=== PATIENT | female | born 1970 | race Caucasian/White ===

== ENCOUNTER 2024-07-18 10:49 | Emergency (ER) | payer OTHER, SELFPAY ==
--- NOTE | ~2024-07-18 | CT_ITS ---
CT brain wo con Ordering provider: Lolita Navarro APRN History: 54 years Female with . headache worst of my life . Comparison: November 24, 2005 [place] Technique: CT of the head without contrast. Radiation reduction technique utilized.The dose-length pr oduct was 605.33 mGy-cm. FINDINGS: BRAIN PARENCHYMA AND CSF SPACES: No midline shift, mass effect or hemorrhage. The brain parenchyma a nd CSF spaces are otherwise normal. VISUALIZED PARANASAL SINUSES: Well aerated. MASTOIDS: Well aerated. BONES: The bones appear intact. SOFT TISSUES: Visualized nasopharynx is normal. Superficial soft tissues are normal. IMPRESSION: No acute intracranial findings. Reviewed, dictated and finalized at location A.
[2024-07-18 10:50] VITALS: BP 125/93; PULSE 89; RESP 16; TEMP 37; O2SAT 98
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
--- OUTSIDE RECORDS SUMMARY | 2024-07-18 11:56 | XMS_ITS | Continuity of Care Document ---
Author Organization [facility] Address [address] [place] [address] Phone Care Team Providers Care Disability Insurance Hearing Officer Name Role Phone Lan Lopes MD Unavailable Unavailable Procedures Procedure Date Medical Testimony Deposition Work/medical disability examination MARCIA X-ray exam of neck spine2-3 views Advance Directives Directive Yes / No Effective Date File Name No Information Encounters Encounter Description Practice Location Reason(s) For Visit Diagnoses Date Provider Providers Copied on Encounter [facility], [address] [place] [address], [id number], tel:[phone] No Information 2 Moses Montenegro. [address] [place] [address], [id number] , [place]. tel: [phone] Work/medical disability examination MARCIA [facility], [address] [place] [address], [id number], [place] tel:[phone] [facility] 1 Moses Montenegro. [address] [place] [address], [id number] , [place]. tel: [phone] Family History Family Member Type Diagnosis Age At Onset No Information Payers Payer name Insurance type Covered libertarian ID Authoriza tion(s) No Information Social History Type Description Quantity Date Captured Comments Sex Female Smoking Status No Information Chief Complaint And Reason For Visit No Information Reason For Referral Reason For Referral No Information History Of Present Illness Encounter Date Complaint History Of Prese nt Illness No Information Functional Status Date Functional Assessmen t No Information Instructions Date Instruction Additional Infor mation No Information Assessments Type Assessment Date No Information Patient Care Teams Name Effective Dates (start - stop) Status Members No Information
--- NOTE | 2024-07-18 12:12 | ED.HA ---
HPI - Headache General Chief Complaint: Headache Stated Complaint: KAT Time Seen by Provider: 07/18/24 11:41 History of Present Illness HPI Narrative: Patient is a 54-year-old female presents to the ER with complaints headache. She reports the pain started 2-3 days ago but worsened last night. Patient endorses nausea, gastric reflux, and a sore throat. She reports she used to have migraines but has not had them in years. Patient reports the pain starts in the middle of her forehead, then radiates behind her left eye and to the back of her head. She denies any pertinent medical history relevant to this ER visit. Related Data Allergies Allergy/AdvReac Type Severity Reaction Status Date / Time No Known Allergies Allergy Verified 07/18/24 10:49 Review of Systems Review of Systems: All systems reviewed & are unremarkable except as noted in HPI and below Exam Narrative: GENERAL: Well appearing, well-nourished, non-toxic, in no acute distress. HEAD: Normocephalic, atraumatic. NECK: Supple. No adenopathy, no masses. RESPIRATORY: Airway patent, respirations nonlabored. Clear to auscultation bilaterally, no rales, rhonchi, wheezing. CARDIOVASCULAR: Regular rate and rhythm without murmurs, rubs, or gallops. Peripheral pulses 2+ and equal bilaterally. ABDOMINAL: Soft, nontender, nondistended, no hepatosplenomegaly. Normoactive BS. MUSCULOSKELETAL: Moves all extremities. Strength/ROM intact without gross deformities. SKIN: Warm, dry, normal color. No rashes. NEURO: A&O X3. Speech clear. Cranial nerves II-XII intact. No ataxic movements. PSYCHIATRIC: Appropriate mood and affect. Normal interaction. Course Vital Signs Vital signs: Vital Signs Temperature 37.0 C 07/18/24 10:50 Pulse Rate 89 07/18/24 10:50 Respiratory Rate 16 07/18/24 10:50 Blood Pressure 125/93 H 07/18/24 10:50 Pulse Oximetry 98 07/18/24 10:50 Temperature 37.0 C 07/18/24 10:50 Pulse Rate 89 07/18/24 10:50 Respiratory Rate 16 07/18/24 10:50 Blood Pressure 125/93 H 07/18/24 10:50 Pulse Oximetry 98 07/18/24 10:50 MDM - Headache MDM Narrative Medical decision making narrative: Patient is a 54-year-old female presents to the ER with complaints headache. She reports the pain started 2-3 days ago but worsened last night. Patient endorses nausea, gastric reflux, and a sore throat. She reports she used to have migraines but has not had them in years. Patient reports the pain starts in the middle of her forehead, then radiates behind her left eye and to the back of her head. She denies any pertinent medical history relevant to this ER visit. Labs Ordered: CBC, CMP, strep, COVID/flu/RSV Imaging Ordered: CT brain Medications Ordered: 1 L normal saline IV bolus, Toradol IV, Benadryl IV, Decadron IV, Reglan IV Results: CT scan indicates BRAIN PARENCHYMA AND CSF SPACES: No midline shift, mass effect or hemorrhage. The brain parenchyma and CSF spaces are otherwise normal. VISUALIZED PARANASAL SINUSES: Well aerated. MASTOIDS: Well aerated. BONES: The bones appear intact. SOFT TISSUES: Visualized nasopharynx is normal. Superficial soft tissues are normal. Diagnosis: migraine headache Risks: HEART score, PECARN score, CURB-65 score Consults: Patient Education/Shared MDM: Results of lab work and imaging shared with patient. She endorses improvement of symptoms following medication administration. Patient reports her throat is also better. She reports she thinks she may need to get evaluated for sleep disorder for further evaluation of her throat. Patient strongly advised to maintain hydration status upon discharge and follow-up with their PCP as soon as possible. She will not be discharged home with any new prescriptions. Strict return precautions provided. Patient verbalized understanding and is in agreement with plan. Vital signs stable at time of discharge. All questions answered. Differential Diagnosis Differential diagnosis: Likely migraine, tension headache and subarachnoid hemorrhage Lab Data Attestation: I reviewed the patient's lab results. 07/18/24 12:35 07/18/24 12:35 Labs: Lab Results 07/18/24 Range/Units 12:35 WBC 8.1 (4.5-10.0) K/mm3 RBC 4.21 (4.2-5.4) M/mm3 Hgb 11.1 L (12.0-15.0) g/dL Hct 36.5 L (37.0-47.0) % MCV 86.7 (80-100) fl MCH 26.4 (26-34) pg MCHC 30.4 L (32-36) g/dl RDW 15.1 H (11.5-14.5) % Plt Count 297 (150-375) k/mm3 MPV 9.2 (7.4-10.4) fl Immature Gran % (Auto) 0.9 H (0-0.5) % Neut % (Auto) 57.8 (45.5-73.1) % Lymph % (Auto) 28.9 (18.3-44.2) % Trinity % (Auto) 9.6 H (2.6-8.5) % Eos % (Auto) 2.6 (0-4.4) % Baso % (Auto) 0.2 (0.2-1.2) % Lymph # (Auto) 2.34 (0.9-3.2) K/mm3 Trinity # (Auto) 0.8 H (0.1-0.6) K/mm3 Eos # (Auto) 0.2 (0-0.3) K/mm3 Baso # (Auto) 0.0 (0.0-0.1) K/mm3 Abs Immat Gran (auto) 0.07 H (0.00-0.031) K/mm3 Absolute Neuts (auto) 4.7 (1.3-6.7) K/mm3 Absolute Nucleated RBC 0.000 (0.0-0.012) K/mm3 Nucleated RBC % 0.0 (0.0-0.2) % Sodium 141 (137-145) mmol/L Potassium 3.8 (3.4-5.0) mmol/L Chloride 112 H (98-107) mmol/L Carbon Dioxide 25 (22-30) mmol/L Anion Gap 4 (4-12) mmol/L BUN 10 (7-17) mg/dL Creatinine 0.50 L (0.7-1.0) mg/dL Estim Creat Clear Calc 133 ml/min Estimated GFR > 60 (59 - ) Glucose 87 (65-110) mg/dL Calcium 9.8 (8.4-10.2) mg/dL Total Bilirubin 0.2 (0.2-1.3) mg/dL AST 22 (14-36) U/L ALT 31 (6-35) U/L Alkaline Phosphatase 50 (38-126) U/L Total Protein 6.0 L (6.3-8.2) g/dL Albumin 3.6 (3.5-5.1) g/dL Influenza A (RT-PCR) Negative (Negative) Influenza B (RT-PCR) Negative (Negative) RSV (RT-PCR) Negative (Negative) SARS-CoV-2 RNA (RT-PCR) Negative (Negative) Group A Strep (PCR) Not detected (Negative) Imaging Data Attestation: I personally reviewed and interpreted this imaging study as follows: Radiologist's impression: Impressions Head CT 07/18/24 13:06 IMPRESSION: No acute intracranial findings. Discharge Plan Discharge Clinical Impression: Migraine, Headache Patient Disposition: Home Condition: Stable Instructions: Antibiotic Form, Migraine Headache (ED) Additional Instructions: Please return to the ER with any worsening symptoms. Follow-up with primary care provider as soon as possible. Take all regularly scheduled medications. Patient Language: [place] Islander Follow-up/Referrals: Cici,Brett Moser MD [Primary Care Provider] - Time of Disposition: 13:50
[2024-07-18] MEDS: SODIUM CHLORIDE 0.9% IV 1,000 ML 999 ML IV CONT (12:35)
[2024-07-18] MEDS: METOCLOPRAMIDE HCL INJ 10 MG/2 ML VIAL IV PUSH (12:36)
[2024-07-18] MEDS: diphenhydrAMINE HCl INJ 50 MG/ML VIAL 25 MG IV PUSH (12:36)
[2024-07-18] MEDS: dexAMETHasone SOD PHOS INJ 10 MG/ML 1 ML VIAL IV PUSH (12:36)
[2024-07-18 12:48] LABS: Basophils Percent Auto 0.2 % (0.2-1.2); Eosinophils Absolute Auto 0.2 K/mm3 (0-0.3); Eosinophils Percent Auto 2.6 % (0-4.4); Hematocrit 36.5 % (37.0-47.0); Hemoglobin 11.1 g/dL (12.0-15.0); Immature Granulocyte Absolute 0.07 K/mm3 (0.00-0.031); Immature Granulocyte Percent A 0.9 % (0-0.5); Lymphocytes Absolute Auto 2.34 K/mm3 (0.9-3.2); Lymphocytes Percent Auto 28.9 % (18.3-44.2); Mean Corpuscular HGB Conc 30.4 g/dl (32-36); Mean Corpuscular Hemoglobin 26.4 pg (26-34); Mean Corpuscular Volume 86.7 fl (80-100); Mean Platelet Volume 9.2 fl (7.4-10.4); Monocytes Absolute Auto 0.8 K/mm3 (0.1-0.6); Monocytes Percent Auto 9.6 % (2.6-8.5); Neutrophils Absolute Auto 4.7 K/mm3 (1.3-6.7); Neutrophils Percent Auto 57.8 % (45.5-73.1); Platelet Count Result 297 k/mm3 (150-375); Red Blood Count 4.21 M/mm3 (4.2-5.4); Red Cell Distribution Width 15.1 % (11.5-14.5); White Blood Count 8.1 K/mm3 (4.5-10.0)
[2024-07-18 12:59] LABS: Alanine Aminotransferase 31 U/L (6-35); Albumin Level 3.6 g/dL (3.5-5.1); Alkaline Phosphatase 50 U/L (38-126); Anion Gap 4 mmol/L (4-12); Aspartate Amino Transferase 22 U/L (14-36); Bilirubin,Total 0.2 mg/dL (0.2-1.3); Blood Urea Nitrogen 10 mg/dL (7-17); Calcium 9.8 mg/dL (8.4-10.2); Carbon Dioxide 25 mmol/L (22-30); Chloride 112 mmol/L (98-107); Estimated CRCL calculation 133 ml/min; Estimated Glomerular Filt Rate > 60; Glucose 87 mg/dL (65-110); Potassium 3.8 mmol/L (3.4-5.0); Sodium 141 mmol/L (137-145)
[2024-07-18 13:14] LABS: Strep Group A RT-PCR NOT DETECTED (Negative)
[2024-07-18 13:26] LABS: Influenza A QL RT-PCR Negative (Negative); Influenza B QL RT-PCR Negative (Negative); RSV RNA, RT-PCR Negative (Negative); SARS-CoV-2 RNA PCR Negative (Negative)
[2024-07-18] MEDS: KETOROLAC 15 MG/ML VIAL (*BKC) IV PUSH (13:26)
[2024-07-18 14:01] VITALS: BP 138/86; PULSE 16; RESP 16; TEMP 31.6; O2SAT 98
== END 2024-07-18 14:29 | disposition home or self-care (01) ==
PROVIDERS: Emergency Provider Registered Nurse; PCP Family Medicine
DX: G43.909 Migraine, unspecified, not intractable, without status migrainosus (principal); Z20.822 Contact with and (suspected) exposure to COVID-19
CPT/HCPCS: 36415; 70450; 80053; 85025; 87637; 87651; 96361; 96374; 96375; 99284; J1100; J1200; J1885; J2765; J7030

== ENCOUNTER 2024-07-22 08:22 | Emergency (ER) | payer OTHER, SELFPAY ==
--- NOTE | ~2024-07-22 | XR_ITS ---
Clinical Indication: Cough PA and lateral views of the chest: Comparison: 11/24/2005 Findings: The lungs are clear, without evidence of focal consolidation or pleural effusion. Cardiome diastinal silhouette is within normal limits. Bones and soft tissues are unremarkable. Impression: Normal chest. Reviewed, dictated and finalized at [facility]. Impression: Normal chest.
--- OUTSIDE RECORDS SUMMARY | 2024-07-22 08:26 | XMS_ITS | Patient Health Record ---
Author Organization [facility] Address [address] [place] [address] Care Team Providers Care Disassembler Product Name Role Phone Abby Duncan Primary Care Provider Sami Forbes Unavailable [phone] Carmen Pagan Unavailable Allergies No Known Allergies Results Component Value Reference Range Notes Breathalyzer Reviewed date:07/14/2024 02:34:23 PM Interpretation: Performing Lab: Notes/Report: LISA 0.000 12 Panel Urine Drug Screen Reviewed date:07/14/2024 02:35:09 PM Interpretation: Performing Lab: Notes/Report: THC neg BHAVIN neg MOP (OPI) neg AMP neg MET neg BAR neg BZO neg MDMA neg MTD neg OXY neg PCP neg BUP neg QuantiFERON-TB Gold Plus ([id number]) Reviewed date:07/17/2024 10:26:17 AM Interpretation: Performing Lab:[facility], [address], Phone - [phone], Director - [facility] Notes/Report: QuantiFERON Incubation Incubation performed. QuantiFERON-TB Gold [...] Screen *HIV 1, 2 Ab, p24 Ag ([id number]) Reviewed date:07/17/2024 10:26:26 AM Interpretation: Performing Lab:[facility] [address] [place] [address], Phone - [phone], Director - [facility] Notes/Report: HIV Ab/p24 Ag Screen Non Reactive Non Reactive HIV-1/HIV-2 antibodies and HIV-1 p24 antigen were NOT detected. There is no laboratory evidence of HIV infection. HIV Negative Hepatitis B Surface Antigen (HBsAg Screen) Reviewed date:07/17/2024 10:26:36 AM Interpretation: Performing Lab:[facility] [address], Phone - [phone], Director - [facility] Notes/Report: HBsAg Screen Negative Negative Hepatitis C Virus Antibody w /Rflx to Quantitative Real-time PCR ([id number]) Reviewed date:07/17/2024 10:26:48 AM Interpretation: Performing Lab:[facility] [address] [place] [address], Phone - [phone], Director - [facility] Notes/Report: HCV Ab Non Reactive Non Reactive Interpretation: Not infected with HCV unless early or acute infection is suspected (which may be delayed in an immunocompromised individual), or other evidence exists to indicate HCV infection. Occult Blood, Fecal, IA ([id number]) Reviewed date:07/17/2024 10:49:42 AM Interpretation: Performing Lab:[facility] [address], Phone - [phone], Director - [facility] Notes/Report: Occult Blood, Fecal, IA TNP Test not performed. No Immuno Polymedco OC sampling bottle received. Reason For Referral Reason Client needs assista nce with applying to housing options while on the unit Diagnosis 1 Depression (F32.9) [facility] Referring Provider First Name Carmen Referring Provider Last Name Alena westfall Referring Provider Speciality Mental [facility] counseling Referred Provider Specialty [employer] Administrator Referral Priority Routine Reason Unemployment, disabi lity, housing Diagnosis 1 MDD (major depressiv e disorder) (F32.9) Diagnosis 2 Anxiety disorder (F4 1.9) Diagnosis 3 PTSD (post-traumatic stress disorder) (F43.10) Referral Organization [facility] Referring Provider First Name Abby Referring Provider Last Name Dakota Referring Provider Speciality Psychiatry Referred Provider Specialty [facility] General Notes DakotaAbby cooper Amarilys 02:15:33 [...] with others, in a hotel, in a usp, living outside on the street, on a beach, or in a park) Client has been staying with friend but was asked to leave prior to detox at [facility]. Client is now homeless Are you worried about losing your housing? Yes What is the highest level of school that you have finished? More than high school What is your current work situation? Unemployed and seeking work Client will be able to reapply for job at [employer] after completing treatment. In the past year, have you o r any family members you live with been unable to get any of the following when it was really needed? Check all that apply Medicine or any health care (medical, dental, mental health or vision) Needs help getting a psych provider, telegraphic typewriter mechanic will help get client scheduled Has lack [...] to suspended license. Client has been in [facility] where public transport is minimal. How often do you see or talk to people that you care about and feel close to? (For example: talking to friends on the phone, visiting friends or family, going to anabaptist or club meetings) 3 to 5 times a week In the past year have you spent more than 2 nights in a row in a detention, long term, jail center, or juvenile correctional facility? No Are [...] Status W/U Status Risk Notes Problem Hypertension (21287376) Hypertension (I10) 07/15/19 25 Active confirmed Problem Hyperlipidemia (44780902) Hyperlipidemia (E78.5) 07/15/19 25 Active confirmed Problem Posttraumatic stress disorder (34301334) PTSD (post-traumatic stress disorder) (F43.10) Active confirmed likely CPTSD Problem Anxiety disorder (442006876) Anxiety disorder (F41.9) Active confirmed Problem Major depressive disorder (597802667) MDD (major depressive disorder) (F32.9) Active confirmed Vital Signs Heart Rate 87 /min 07/14/2024 Respiratory Rate 16 /min 07/14/2024 Blood pressure diastolic 84 mm Hg 07/14/2024 Oximetry 95 % 07/14/2024 Height 64 in 07/14/2024 Blood pressure systolic 128 mm Hg 07/14/2024 Weight 256.2 lbs 07/14/2024 BMI 43.97 kg/m2 07/14/2024 Encounters Encounter Location Date Provider Diagnosis [facility] [address] [place] [address] 07/14/2024 Sami Forbes Hypertension I10 ; Hyperlipidemia E78.5 ; Screening for diabetes mellitus Z13.1 ; Colon cancer screening Z12.11 ; Exposure to potential infection Z20.9 ; Left leg weakness R29.898 ; Left leg pain M79.605 and Depression F32.9 [facility] [address] [place] [address] 07/14/2024 Carmen Pagan Depression F32.[address] [place] [address] 07/17/2024 Abby Duncan MDD (major depressiv e disorder) F32.9 ; Anxiety disorder F41.9 and PTSD (post-traumatic stress disorder) F43.10 [facility] [address] [place] [address] 07/16/2024 Abby Duncan Assessments Encounter Date Diagnosis [...] Insured Coverage Start Date Coverage End Date [facility] Attn Claims Department [address] [address] [phone] [id number] Luna Deutsch Self - patient is the insured 3 [employer] Attn Claims Department [address] [address] [phone] [id number] Luna Deutsch Self - patient is the insured 5 [employer] Attn Claims Department [address] [address] [phone] [id number] Luna Deutsch Self - patient is the insured 3 Medical (General) History Medical History History ICD Code HTN HLD Hypothyroidism MDD Surgical History Surgery Date(Month/Year) cellutisis MRSA x2 Achillies repair Hospitalization History Reason Date(Month/Year) [facility]
--- OUTSIDE RECORDS SUMMARY | 2024-07-22 08:26 | XMS_ITS | Continuity of Care Document ---
Author Organization [facility] Address [address] [place] [address] Phone Care Team Providers Care Dry Color Tester Name Role Phone Lan Lopes MD Unavailable Unavailable Procedures Procedure Date Medical Testimony Deposition Work/medical disability examination MARCIA X-ray exam of neck spine2-3 views Advance Directives Directive Yes / No Effective Date File Name No Information Encounters Encounter Description Practice Location Reason(s) For Visit Diagnoses Date Provider Providers Copied on Encounter [facility] [employer], [address] [place] [address], [id number], tel:[phone] [employer] No Information 2 Moses Montenegro. [address] [place] [address], [id number] , [place]. tel: [phone] Work/medical disability examination MARCIA [facility] [employer], [address] [place] [address], [id number], [place] tel:[phone] [facility] [facility] 1 Moses Montenegro. [address] [place] [address], [id number] , [place]. tel: [phone] Family History Family Member Type Diagnosis Age At Onset No Information Payers Payer name Insurance type Covered democrat ID Authoriza tion(s) No Information Social History [...]
[2024-07-22 08:32] VITALS: BP 120/85; PULSE 95; RESP 18; TEMP 36.8; O2SAT 99
--- OUTSIDE RECORDS SUMMARY | 2024-07-22 09:00 | XMS_ITS | Continuity of Care Document ---
Author Organization [facility] Address [address] [place] [address] Phone Care Team Providers Care Ground Wirer Name Role Phone Lan Lopes MD Unavailable Unavailable Procedures Procedure Date Medical Testimony Deposition Work/medical disability examination MARCIA X-ray exam of neck spine2-3 views Advance Directives Directive Yes / No Effective Date File Name No Information Encounters Encounter Description Practice Location Reason(s) For Visit Diagnoses Date Provider Providers Copied on Encounter [facility], [address] [place] [address], [id number], tel:[phone] [employer] No Information 2 Moses Montenegro. [address] [place] [address], [id number] , [place]. tel: [phone] Work/medical disability examination MARCIA [facility], [address] [place] [address], [id number], [place] tel:[phone] [facility] 1 Moses Montenegro. [address] [place] [address], [id number] , [place]. tel: [phone] Family History Family Member Type Diagnosis Age [...]
--- NOTE | 2024-07-22 09:19 | ECG_ITS ---
Test Date: 2024-07-22 09:28:45 Measurements Intervals [place] Rate: 80 P: 54 NV: 142 QRS: 36 QRSD: 93 T: 27 QT: 357 QTc: 413 Interpretive Statements SINUS RHYTHM NONSPECIFIC T WAVE ABNORMALITY No previous ECG available for comparison Electronically Signed On 07-22-2024 14:07:40 CDT by Lucien Nichols M.D.
[2024-07-22 09:34] VITALS: PULSE 78; RESP 14
[2024-07-22 09:37] LABS: Basophils Percent Auto 0.3 % (0.2-1.2); Eosinophils Absolute Auto 0.2 K/mm3 (0-0.3); Eosinophils Percent Auto 1.9 % (0-4.4); Hemoglobin 10.9 g/dL (12.0-15.0); Immature Granulocyte Absolute 0.08 K/mm3 (0.00-0.031); Immature Granulocyte Percent A 0.7 % (0-0.5); Lymphocytes Absolute Auto 1.25 K/mm3 (0.9-3.2); Lymphocytes Percent Auto 10.5 % (18.3-44.2); Mean Corpuscular HGB Conc 31.1 g/dl (32-36); Mean Corpuscular Hemoglobin 26.5 pg (26-34); Mean Corpuscular Volume 85.2 fl (80-100); Monocytes Absolute Auto 1.2 K/mm3 (0.1-0.6); Monocytes Percent Auto 9.9 % (2.6-8.5); Neutrophils Absolute Auto 9.1 K/mm3 (1.3-6.7); Neutrophils Percent Auto 76.7 % (45.5-73.1); Platelet Count Result 281 k/mm3 (150-375); Red Blood Count 4.11 M/mm3 (4.2-5.4); Red Cell Distribution Width 15.4 % (11.5-14.5); White Blood Count 11.9 K/mm3 (4.5-10.0)
[2024-07-22] MEDS: IPRATROPIUM 0.5 MG/ALBUTEROL SULFATE 2.5 MG AMPUL.NEB 3 ML INHALATION (09:37)
[2024-07-22 09:41] VITALS: PULSE 80; RESP 15
--- NOTE | 2024-07-22 09:46 | ED.URI ---
HPI - URI/Sore Throat General Chief Complaint: Upper Respiratory Infection Stated Complaint: HTN, congestion Time Seen by Provider: 07/22/24 08:52 Source: patient Mode of arrival: ambulatory Limitations: no limitations History of Present Illness HPI Narrative: Patient is a 54-year-old female who presents the ED with report of upper respiratory symptoms. Patient reports she began feeling ill on Sunday with a scratchy sore throat. She has developed sinus pressure, congestion, rhinorrhea. States today symptoms seem to be more into her chest with chest congestion, dry cough. She has been feeling short of breath, worse with exertion. Reports having chest pain with coughing, otherwise denies chest pain at rest. Patient states she feels miserable overall. Denies fevers. Denies known sick contacts. She is currently residing at [facility] [place] [facility] [place] health [place]. Denies pain or swelling in legs. Denies previous history of lung issues. Denies smoking history. Related Data Allergies Allergy/AdvReac Type Severity Reaction Status Date / Time No Known Allergies Allergy Verified 07/18/24 10:49 Review of Systems Review of Systems: All systems reviewed & are unremarkable except as noted in HPI. All systems reviewed & are unremarkable except as noted in HPI and below Exam Narrative: GENERAL: Appears older than stated age, morbidly obese with BMI of 45.3, non-toxic, in no acute distress. HEAD: Normocephalic, atraumatic. RESPIRATORY: Airway patent, respirations mildly tachypneic, but nonlabored. Scattered end expiratory faint wheezing, heard most in right lower lung zone. CARDIOVASCULAR: Regular rate and rhythm without murmurs, rubs, or gallops. Peripheral pulses intact. ABDOMINAL: Soft, nontender, nondistended. Normoactive BS. MUSCULOSKELETAL: Moves all extremities. No gross deformities. No peripheral edema. No calf tenderness. SKIN: Warm, dry, normal color. NEURO: A&O X3. Speech clear. Cranial nerves II-XII grossly intact. Steady gait. No ataxic movements. PSYCHIATRIC: Appropriate mood and affect. Normal interaction. Course Vital Signs Vital signs: Vital Signs Temperature 98.3 F 07/22/24 08:32 Pulse Rate 95 07/22/24 08:32 Respiratory Rate 18 07/22/24 08:32 Blood Pressure 120/85 07/22/24 08:32 Pulse Oximetry 99 07/22/24 08:32 Oxygen Delivery Room Air 07/22/24 08:32 Temperature 98.3 F 07/22/24 08:32 Pulse Rate 63 07/22/24 11:22 Respiratory Rate 18 07/22/24 11:22 Blood Pressure 145/81 H 07/22/24 11:22 Pulse Oximetry 100 07/22/24 11:22 Oxygen Delivery Room Air 07/22/24 10:32 MDM - URI/Sore Throat MDM Narrative Medical decision making narrative: Patient presented to ED with URI symptoms began a few days ago. Congestion, cough, short of breath, chest pain with coughing. Vital signs are stable upon arrival. Patient is afebrile here. In no acute distress. EKG with normal sinus rhythm, no concerning ST changes. Troponin undetectable. BNP within normal range. Patient does not appear fluid overloaded. D-dimer is within normal range. Chest x-ray clear. Cbc with blood cell count of 11.9. This is new from previous/recent labs last week. CMP unremarkable. Viral swabs are negative. Given new white count with new cough, will cover for atypical PNA with abx. Patient will be started on Augmentin and azithromycin for CAP. Will also prescribe inhaler for home use as patient did have some wheezing on exam. Vitals have remained stable throughout ED stay. There has been no hypoxia. Otherwise feel patient is safe for discharge home with outpatient follow-up. Patient given strict return precautions. She is in agreement with plan. Discharged in stable condition. Medical Records Attestation: I reviewed the patient's medical records. Lab Data Attestation: I reviewed the patient's lab results. 07/22/24 09:31 07/22/24 09:31 Labs: Lab Results 07/22/24 07/22/24 Range/Units 09:17 09:31 WBC 11.9 H (4.5-10.0) K/mm3 RBC 4.11 L (4.2-5.4) M/mm3 Hgb 10.9 L (12.0-15.0) g/dL Hct 35.0 L (37.0-47.0) % MCV 85.2 (80-100) fl MCH 26.5 (26-34) pg MCHC 31.1 L (32-36) g/dl RDW 15.4 H (11.5-14.5) % Plt Count 281 (150-375) k/mm3 MPV 9.0 (7.4-10.4) fl Immature Gran % (Auto) 0.7 H (0-0.5) % Neut % (Auto) 76.7 H (45.5-73.1) % Lymph % (Auto) 10.5 L (18.3-44.2) % Grady % (Auto) 9.9 H (2.6-8.5) % Eos % (Auto) 1.9 (0-4.4) % Baso % (Auto) 0.3 (0.2-1.2) % Lymph # (Auto) 1.25 (0.9-3.2) K/mm3 Grady # (Auto) 1.2 H (0.1-0.6) K/mm3 Eos # (Auto) 0.2 (0-0.3) K/mm3 Baso # (Auto) 0.0 (0.0-0.1) K/mm3 Abs Immat Gran (auto) 0.08 H (0.00-0.031) K/mm3 Absolute Neuts (auto) 9.1 H (1.3-6.7) K/mm3 Absolute Nucleated RBC 0.000 (0.0-0.012) K/mm3 Nucleated RBC % 0.0 (0.0-0.2) % PT 13.1 (11.1-14.7) Seconds INR 1.0 APTT 21.7 L (22.3-36.8) Seconds D-Dimer 0.43 (<0.48) ug/mL Sodium 138 (137-145) mmol/L Potassium 3.8 (3.4-5.0) mmol/L Chloride 107 (98-107) mmol/L Carbon Dioxide 28 (22-30) mmol/L Anion Gap 3 L (4-12) mmol/L BUN 13 (7-17) mg/dL Creatinine 0.55 L (0.7-1.0) mg/dL Estim Creat Clear Calc 124 ml/min Estimated GFR > 60 (59 - ) Glucose 86 (65-110) mg/dL Calcium 9.9 (8.4-10.2) mg/dL Total Bilirubin 0.3 (0.2-1.3) mg/dL AST 20 (14-36) U/L ALT 29 (6-35) U/L Alkaline Phosphatase 69 (38-126) U/L Troponin I < 0.012 (0.000-0.034) ng/mL NT-Pro-B Natriuret Pep 253 H (19.9-100) pg/mL Total Protein 6.0 L (6.3-8.2) g/dL Albumin 3.7 (3.5-5.1) g/dL Influenza A (RT-PCR) Negative (Negative) Influenza B (RT-PCR) Negative (Negative) RSV (RT-PCR) Negative (Negative) SARS-CoV-2 RNA (RT-PCR) Negative (Negative) Imaging Data Attestation: I personally reviewed and interpreted this imaging study as follows: Radiologist's impression: ITS Impressions Chest X-Ray 07/22/24 09:56 Impression: Normal chest. ECG Data EKG #1: Attestation: I personally reviewed and interpreted this ECG as follows: ECG completion date: 07/22/24 ECG completion time: :28 EKG Interpretation: normal rate (80), sinus rhythm and no ST changes Discharge Plan Discharge Clinical Impression: Pneumonia Qualifiers: Pneumonia type: due to unspecified organism Laterality: unspecified laterality Lung location: unspecified part of lung Qualified Code(s): J18.9 - Pneumonia, unspecified organism Patient Disposition: Other Condition: Stable Instructions: Antibiotic Form, Viral Syndrome (ED), Cold Symptoms (ED), Pneumonia (ED) Additional Instructions: Take antibiotics as prescribed for potential pneumonia. Utilize inhaler as needed for wheezing. Stay well-hydrated at home. Utilize Tessalon Perles as needed for cough. Continue Tylenol and Ibuprofen as needed for discomfort and/or fevers. Recommend [id number] cough and cold medicines for symptom relief, Delsym, Mucinex, DayQuil, NyQuil, Sudafed, Robitussin, TheraFlu. Follow with primary care doctor upon resolution of symptoms. Return to the ED if you experience worsening or severe chest pain, difficulty breathing, unable to keep down food or drink, severe pain, or any other symptoms of concern. Patient Language: Arabic Prescriptions: New azithromycin [Zithromax Z-Brendon] 250 mg tablet See Rx Instructions .ROUTE .COMPLEX Qty: 6 0RF Rx Instructions: For 250 mg dose pack: take 500 mg today (day 1), then 250 mg for 4 days (days 2-5) amoxicillin-pot clavulanate 875-125 mg tablet 1 tablet PO Q12H 7 Days Qty: 14 0RF albuterol sulfate 90 mcg/actuation HFA aerosol inhaler 2 puff inhalation QID PRN (Reason: shortness of breath or wheezing) Qty: 6.7 0RF benzonatate 200 mg capsule 200 mg PO TID PRN (Reason: cough) Qty: 14 0RF Follow-up/Referrals: Cici,Brett Moser MD [Primary Care Provider] - Time of Disposition: 11:05
[2024-07-22 09:49] LABS: Alanine Aminotransferase 29 U/L (6-35); Albumin Level 3.7 g/dL (3.5-5.1); Alkaline Phosphatase 69 U/L (38-126); Anion Gap 3 mmol/L (4-12); Aspartate Amino Transferase 20 U/L (14-36); Bilirubin,Total 0.3 mg/dL (0.2-1.3); Blood Urea Nitrogen 13 mg/dL (7-17); Calcium 9.9 mg/dL (8.4-10.2); Carbon Dioxide 28 mmol/L (22-30); Chloride 107 mmol/L (98-107); Estimated CRCL calculation 124 ml/min; Estimated Glomerular Filt Rate > 60; Glucose 86 mg/dL (65-110); Potassium 3.8 mmol/L (3.4-5.0); Sodium 138 mmol/L (137-145)
[2024-07-22 09:50] LABS: Partial Thromboplastin Time 21.7 Seconds (22.3-36.8); Prothrombin Time 13.1 Seconds (11.1-14.7)
[2024-07-22 09:55] LABS: D Dimer 0.43 ug/mL (<0.48)
[2024-07-22 10:01] LABS: Influenza A QL RT-PCR Negative (Negative); Influenza B QL RT-PCR Negative (Negative); RSV RNA, RT-PCR Negative (Negative); SARS-CoV-2 RNA PCR Negative (Negative)
[2024-07-22 10:01] LABS: NT Pro B Type Natriuretic Pept 253 pg/mL (19.9-100); Troponin I < 0.012 ng/mL (0.000-0.034)
[2024-07-22] MEDS: KETOROLAC 30 MG/ML VIAL (*BKC) IV PUSH (11:17)
[2024-07-22 11:22] VITALS: BP 145/81; PULSE 63; RESP 18; O2SAT 100
== END 2024-07-22 11:25 ==
PROVIDERS: Emergency Provider Physician Assistant; PCP Family Medicine
DX: J18.9 Pneumonia, unspecified organism (principal); Z20.822 Contact with and (suspected) exposure to COVID-19; R94.31 Abnormal electrocardiogram [ECG] [EKG]
CPT/HCPCS: 36415; 71046; 80053; 83880; 84484; 85025; 85380; 85610; 85730; 87637; 93005; 94640; 96374; 99284; J1885